=== PATIENT | female | born 1955 | race Caucasian/White ===

== ENCOUNTER 2019-07-15 10:35 | Emergency (ER) | payer BC ==
[~2019-07-15] VITALS: Ht 170.2 cm; Wt 81.6 kg
--- NOTE | 2019-07-15 10:35 | NUR ---
CAME IN FOR LEFT EYE PRESSURE AND LEFT FACIAL NUMBNESS NOTED WHEN SHE WOKE UP AT 0630, [facility] AT 1030 PM LAST NIGHT. TO ER BED 2, HOOKED TO MONITOR, CHANGED TO GOWN, PROVIDE W WARM BLANKET, DR PEARSON AT BEDSIDE
[2019-07-15 11:01] LABS: BASOPHILS % (AUTO) 0.8 % (0.0-2.0); EOSINOPHILS % (AUTO) 1.2 % (0.0-6.0); HEMATOCRIT 39 % (33-45); HEMOGLOBIN 13.3 g/dL (11.5-14.8); LYMPHOCYTES # (AUTO) 1.3 /CMM (0.8-4.8); LYMPHOCYTES % (AUTO) 30.4 % (20.0-44.0); MEAN CORPUSCULAR HGB CONC 34 g/dl (31.0-36.0); MEAN CORPUSCULAR VOLUME 88 fL (82-100); MONOCYTES # (AUTO) 0.3 /CMM (0.1-1.30); MONOCYTES % (AUTO) 6.8 % (2.0-12.0); NEUTROPHILS # (AUTO) 2.6 /CMM (1.8-8.9); NEUTROPHILS % (AUTO) 60.8 % (43.0-81.0); PLATELET COUNT (AUTO) 204 /CMM (150-450); RED BLOOD CELL COUNT(AUTO) 4.44 MIL/uL (4.0-5.2); WHITE BLOOD COUNT (AUTO) 4.2 K/uL (4.3-11.0)
[2019-07-15 11:07] LABS: CALCIUM, SERUM 9.2 mg/dL (8.5-10.1); CREATININE 0.9 mg/dL (0.6-1.3); POTASSIUM 3.9 mmol/L (3.5-5.1)
[2019-07-15] MEDS ORDERED: IOHEXOL-350 100 ML VIAL IV ONE (12:30)
[2019-07-15] MEDS ORDERED: CT SWABBABLE VALVE TRANS SET 1 EA INFUS.SET MC ONE (12:31)
[2019-07-15] MEDS ORDERED: IV NS 0.9% 250 ML IV ONE (12:31)
--- NOTE | 2019-07-15 14:00 | NUR ---
IV removed. Catheter intact and site benign. Pressure and 4x4 applied to site. No bleeding noted.Patient discharged to home in stable condition. Written and verbal after care instructions given. Patient verbalizes understanding of instruction.
[2019-07-15 14:01] VITALS: BP 142/95
== END 2019-07-15 14:01 | disposition home or self-care (01) ==
LOC: ER 10:38
DX: G51.0 Bell's palsy (principal); E78.00 Pure hypercholesterolemia, unspecified; F10.10 Alcohol abuse, uncomplicated; Y90.9 Presence of alcohol in blood, level not specified
CPT/HCPCS: 36415; 70496; 70498; 71045; 80048; 80061; 85025; 85730; 93005 ×2; 99284; J7050; Q9967